=== PATIENT | female | born 1935 | race Caucasian/White ===

== ENCOUNTER 2021-04-27 08:42 | Emergency (ER) | payer MEDICARE, OTHER ==
[~2021-04-27] VITALS: Ht 157.5 cm; Wt 104.5 kg
[2021-04-27 11:14] LABS: HEMATOCRIT 39.5 % (37.0-47.0); HEMOGLOBIN 12.5 g/dl (12.0-16.0); IMMATURE GRANULOCYTES 0.2 % (0.0-5.0); MEAN CELL VOLUME 88.4 fL CALC (80.0-100.0); MEAN CORPUSCULAR HGB CONC 31.6 g/dL CAL (32.0-36.0); NEUT# 3.5 thou/uL (2.00-7.15); RED BLOOD COUNT 4.47 mill/uL (4.20-5.60); RED CELL DISTRI WIDTH 13.7 % (11.5-15.5)
[2021-04-27 11:24] LABS: ALBUMIN 4.1 g/dL (3.2-5.0); ALKALINE PHOSPHATASE 49 u/l (38-126); AMYLASE 32 u/l (30-110); ANION GAP 21 (6-22 (CALC)); BILIRUBIN, TOTAL 0.7 mg/dL (0.0-1.4); BUN 29 mg/dL (8-23); BUN/CREATININE RATIO 24 (12-20 (CALC)); CARBON DIOXIDE 35 mmol/l (22-30); CHLORIDE 93 mmol/l (95-108); CREATININE 1.2 mg/dL (0.5-1.0); GFR 43 ML/MIN (>=60 (CALC)); GFR FOR AFR.AMER. 52 ML/MIN (>=60 (CALC)); LIPASE 26 u/l (23-300); POTASSIUM 3.6 mmol/l (3.5-5.1); SGOT/AST 27 u/l (9-36); SODIUM 146 mmol/l (137-146); TOTAL PROTEIN 7.8 g/dL (6.3-8.2)
[2021-04-27 11:36] LABS: MYOGLOBIN 33 ng/mL (0 - 62)
[2021-04-27 12:32] LABS: URINE BILIRUBIN - DIPSTICK NEGATIVE (NEGATIVE); URINE BLOOD DIPSTICK NEGATIVE (NEGATIVE); URINE COLOR YELLOW; URINE GLUCOSE - DIPSTICK NEGATIVE (NEGATIVE); URINE KETONE NEGATIVE (NEGATIVE); URINE LEUK ESTERASE TRACE (NEGATIVE); URINE PH 7.5 (4.5-8.0); URINE PROTEIN - DIPSTICK NEGATIVE (NEG-TRACE); URINE SPECIFIC GRAVITY 1.015; URINE UROBILINOGEN - DIPSTICK 0.2 E.U./dL (0.2)
[2021-04-27 12:38] LABS: URINE NITRITE - DIPSTICK NEGATIVE (Negative)
[2021-04-27] MEDS ORDERED: GABAPENTIN100 MG PO (14:10)
[2021-04-27] MEDS ORDERED: ACTOS30 MG PO (14:13)
[2021-04-27] MEDS ORDERED: METFORMIN500 M2 PO (14:13)
[2021-04-27] MEDS ORDERED: HYDROCODONE BIT10 MG PO (14:16)
[2021-04-27 14:34] VITALS: BP 175/74
== END 2021-04-27 14:46 | disposition home or self-care (01) ==
LOC: ED 08:42
PROVIDERS: Emergency Medicine
DX: K59.00 Constipation, unspecified (principal); E11.9 Type 2 diabetes mellitus without complications; Z79.84 Long term (current) use of oral hypoglycemic drugs; Z20.822 Contact with and (suspected) exposure to COVID-19

== ENCOUNTER 2022-02-09 03:39 | Observation (INO) | payer MEDICARE, OTHER ==
[2022-02-09] VITALS (13 sets, daily range): BP systolic 102–137; BP diastolic 41–75
[~2022-02-09] VITALS: Ht 160 cm; Wt 84.0 kg
[~2022-02-09 03:39] MED LIST: ACTOS30 MG PO; AMARYL4 MG PO; BACLOFEN5 MG PO; BUMETANIDE1 MG PO; CLOTRIM/BETA EX; DICLOFENAC SODIUM1 % TOP; GABAPENTIN100 MG PO; HYDROCO/APAP1 TA9 PO; HYDROCODONE BIT10 MG PO; HYDROXYZINE HYD25 MG PO; KLOR-CON M2020 MEQ PO; MAGNESIUM400 MG PO; METFORMIN500 M2 PO; METOLAZONE2.5 MG PO; PRESERVISION PO; TRIAMCINOLON OI80 GM EX; ZOFRAN4 MG/TAB PO
[2022-02-09 04:25] LABS: HEMATOCRIT 42.6 % (37.0-47.0); IMMATURE GRANULOCYTES 0.5 % (0.0-5.0); MEAN CELL VOLUME 90.3 fL CALC (80.0-100.0); MEAN CORPUSCULAR HGB 27.5 pG CALC (26.0-32.0); MEAN CORPUSCULAR HGB CONC 30.5 g/dL CAL (32.0-36.0); NEUT# 9.22 thou/uL (2.00-7.15); RED BLOOD COUNT 4.72 mill/uL (4.20-5.60); RED CELL DISTRI WIDTH 13.2 % (11.5-15.5)
[2022-02-09 04:54] LABS: ALBUMIN 3.9 g/dL (3.2-5.0); AMYLASE 47 u/l (30-110); ANION GAP 14 (6-22 (CALC)); BILIRUBIN, TOTAL 0.4 mg/dL (0.0-1.4); BUN 32 mg/dL (8-23); BUN/CREATININE RATIO 36 (12-20 (CALC)); CARBON DIOXIDE 33 mmol/l (22-30); CHLORIDE 95 mmol/l (95-108); CREATININE 0.9 mg/dL (0.5-1.0); GFR FOR AFR.AMER. > 60 ML/MIN (>=60 (CALC)); GFR OTHER RACES 59 ML/MIN (>=60 (CALC)); LIPASE 35 u/l (23-300); SGOT/AST 23 u/l (9-36); SODIUM 138 mmol/l (137-146); TOTAL PROTEIN 7.9 g/dL (6.3-8.2)
[2022-02-09 05:02] LABS: ALKALINE PHOSPHATASE 133 u/l (38-126)
[2022-02-09 05:07] LABS: MYOGLOBIN 32 ng/mL (0 - 62)
[2022-02-09 06:19] LABS: URINE BILIRUBIN - DIPSTICK NEGATIVE (NEGATIVE); URINE BLOOD DIPSTICK TRACE-INTACT (NEGATIVE); URINE COLOR YELLOW; URINE GLUCOSE - DIPSTICK NEGATIVE (NEGATIVE); URINE PROTEIN - DIPSTICK NEGATIVE (NEG-TRACE); URINE UROBILINOGEN - DIPSTICK 0.2 E.U./dL (0.2)
[2022-02-09 06:22] LABS: URINE LEUK ESTERASE SMALL (NEGATIVE); URINE NITRITE - DIPSTICK POSITIVE (Negative)
[2022-02-09 06:26] LABS: URINE KETONE NEGATIVE (NEGATIVE)
[2022-02-09 06:27] LABS: URINE EPITHELIAL CELLS MODERATE EPI/hpf (0-FEW); URINE WBC 50-100 WBC/hpf (0-5)
[2022-02-09 06:28] LABS: URINE BACTERIA MANY hpf
[2022-02-10 00:33] VITALS: BP 124/47
[2022-02-10 04:14] VITALS: BP 110/36
[2022-02-10 05:54] LABS: MEAN CELL VOLUME 91.7 fL CALC (80.0-100.0); MEAN CORPUSCULAR HGB 27.9 pG CALC (26.0-32.0); MEAN CORPUSCULAR HGB CONC 30.4 g/dL CAL (32.0-36.0); RED BLOOD COUNT 3.87 mill/uL (4.20-5.60); RED CELL DISTRI WIDTH 13.6 % (11.5-15.5)
[2022-02-10 06:08] LABS: HEMATOCRIT 35.5 % (37.0-47.0); HEMOGLOBIN 10.8 g/dl (12.0-16.0)
[2022-02-10 06:11] LABS: ANION GAP 9 (6-22 (CALC)); BUN 17 mg/dL (8-23); BUN/CREATININE RATIO 28 (12-20 (CALC)); CARBON DIOXIDE 29 mmol/l (22-30); CHLORIDE 104 mmol/l (95-108); CREATININE 0.6 mg/dL (0.5-1.0); GFR FOR AFR.AMER. > 60 ML/MIN (>=60 (CALC)); GFR OTHER RACES > 60 ML/MIN (>=60 (CALC)); POTASSIUM 3.2 mmol/l (3.5-5.1); SODIUM 139 mmol/l (137-146)
[2022-02-10 06:19] VITALS: BP 110/55
[2022-02-10 08:00] VITALS: BP 112/57
[2022-02-10 10:59] VITALS: BP 112/57
[2022-02-10] MEDS ORDERED: KEFLEX500 MG PO (11:24)
[2022-02-10 14:02] VITALS: BP 112/57
== END 2022-02-10 15:45 | disposition home or self-care (01) ==
LOC: ED 03:39 → ED-I 06:30 → ED 06:54 → MS2 06:55
PROVIDERS: Emergency Medicine; ADMIT Hospitalist; ATTEND Hospitalist
DX: N39.0 Urinary tract infection, site not specified (principal); E87.6 Hypokalemia; E83.42 Hypomagnesemia; I11.0 Hypertensive heart disease with heart failure; I50.9 Heart failure, unspecified; E11.40 Type 2 diabetes mellitus with diabetic neuropathy, unspecified; E03.9 Hypothyroidism, unspecified; B96.20 Unspecified Escherichia coli [E. coli] as the cause of diseases classified elsewhere; Z79.84 Long term (current) use of oral hypoglycemic drugs; Z66 Do not resuscitate; Z20.822 Contact with and (suspected) exposure to COVID-19
CPT/HCPCS: J1650; J3475; Q9967

== ENCOUNTER 2024-02-15 01:25 | Inpatient (IN) | payer MEDICARE, OTHER ==
[2024-02-15] VITALS (19 sets, daily range): BP systolic 109–180; BP diastolic 34–97
[~2024-02-15] VITALS: Ht 160 cm; Wt 93.4 kg
[~2024-02-15 01:25] MED LIST changes: +ASPIRIN325 MG PO; +CEFTAZIDIME2 GM IV; +COLACE100 MG PO; +FERROUS SULFAT325 MG PO; +HUMALOG100 UNIT/M SC; +KEFLEX500 MG PO; +LEVOTHYROXIN150 MC1 PO; +LORTAB 5/3255 MG PO; +METFORMIN HCL1000 MG PO; +MIRALAX17 GM; +NEURONTIN600 MG PO; +PEPCID20 MG PO; +QC VITAMIN B; +VITAMIN D-32000 UNI1
[2024-02-15] MEDS ORDERED: ACETAMINOPHEN 500 MG TAB PO ONE (01:40)
[2024-02-15] MEDS ORDERED: KETOROLAC TROMETHAMINE 30 MG/ML SDV IV ONE (01:40)
--- NOTE | 2024-02-15 01:50 | NUR ---
PT ARRIVED VIA POV WITH NIECE BEDSIDE WITH SOB SINCE AM OF 02/14/24. PT WENT TO SLEEP AROUND 2200 AFTER TAKING A PAIN MEDS AT 2130. WOKE UP WITHIN THE HR AND IS HAVING INCREASED SOB. PT HAD RECENT R ANKLE SX WITHIN PAST COUPLE WKS, HAS NOT STARTED PT YET. DENIES ANY NEBI TX OR ALBUTERAL INHALER. VSS SOMEWHAT ELEVATED. O2 APPROPRIATE, RR 18.
[2024-02-15] MEDS ORDERED: PROTONIX40 M2 PO (01:59)
[2024-02-15] MEDS ORDERED: HYDROXYZ HCL25 MG PO (02:00)
[2024-02-15 02:01] LABS: BASO% 0.4 % (0-3); IMMATURE GRANULOCYTES 1.2 % (0.0-5.0); LYMPH% 32.5 % (15-41); MEAN CELL VOLUME 88.9 fL CALC (80.0-100.0); MEAN CORPUSCULAR HGB 25.6 pG CALC (26.0-32.0); MEAN CORPUSCULAR HGB CONC 28.8 g/dL CAL (32.0-36.0); MONO% 6.8 % (2-13); NEUT# 4.27 thou/uL (2.00-7.15); NEUT% 58.1 % (42-76); RED BLOOD COUNT 4.61 mill/uL (4.20-5.60); RED CELL DISTRI WIDTH 16.9 % (11.5-15.5)
[2024-02-15] MEDS ORDERED: KENALOG15 GM/TUBE EX (02:01)
[2024-02-15] MEDS ORDERED: PRESERVISION AREDS 2 PO (02:04)
[2024-02-15] MEDS ORDERED: [UNRECOGNIZED DRUG - OTHER] TOP (02:04)
[2024-02-15] MEDS ORDERED: cefTRIAXone SODIUM 2 GM in SODIUM CHLORIDE 0.9% 100 ML IV ONE (02:05)
[2024-02-15] MEDS ORDERED: AZITHROMYCIN 500 MG in SODIUM CHLORIDE 0.9% 250 ML IV ONE (02:05)
[2024-02-15] MEDS ORDERED: NITROSTAT0.4 MG SL (02:06)
[2024-02-15] MEDS ORDERED: MAGNESIUM 400 M1 TAB PO (02:06)
[2024-02-15 02:08] LABS: HEMOGLOBIN 11.8 g/dl (12.0-16.0)
[2024-02-15 02:19] LABS: ALBUMIN 3.4 g/dL (3.2-5.0); ALKALINE PHOSPHATASE 102 u/l (38-126); ANION GAP 7 (6-22 (CALC)); BILIRUBIN, TOTAL 0.6 mg/dL (0.02-1.3); BUN 17 mg/dL (8-23); BUN/CREATININE RATIO 24 (12-20 (CALC)); CARBON DIOXIDE 34 mmol/l (22-30); CHLORIDE 99 mmol/l (95-108); CREATININE 0.7 mg/dL (0.5-1.0); ESTIMATED GFR 83 ML/MIN (>=90 (CALC)); POTASSIUM 3.9 mmol/l (3.5-5.1); SGOT/AST 31 u/l (9-36); SODIUM 136 mmol/l (137-146); TOTAL PROTEIN 7.7 g/dL (6.3-8.2)
[2024-02-15 02:22] LABS: INTERNATIONAL NORMALIZED RATIO 1.1 RATIO (0.7-1.3)
[2024-02-15 02:28] LABS: PROTHROMBIN TIME 10.8 SECONDS (9.0-12.5)
--- NOTE | 2024-02-15 02:45 | NUR ---
PT RESTING IN BED WITH NIECE BEDSIDE. IV ABX STARTED. PT HAVING APPROPRIATE OXYGEN SATURATION, HOWEVER TAKING SHORT BREATHS. EDUCATED PT ON EFFECTIVE DEEP BREATHING TECHNIQUE.
[2024-02-15] MEDS ORDERED: FUROSEMIDE 40 MG/4 ML SDV IV ONE (03:30)
[2024-02-15 03:32] LABS: D-DIMER 2.05 mg/L (0.19-0.60)
--- NOTE | 2024-02-15 04:10 | NUR ---
PT TO GO TO CAT SCAN....NOT GOING UNTIL SHE IS KNOCKED OUT. PT GIVEN ATIVAN 2 MG IV. SAT FROM 94 TO 89. PLACED ON NC AT [address] WITH RN/RT ON MONITOR BOX.
[2024-02-15] MEDS ORDERED: LORazepam 2 MG/ML ONE (04:12)
--- NOTE | 2024-02-15 05:24 | NUR ---
PT RESTING IN BED WITH EYES CLOSED, HOWEVER STILL AWARE.
[2024-02-15] MEDS ORDERED: ACETAMINOPHEN 325 MG/TAB PO PRN (06:20)
[2024-02-15] MEDS ORDERED: ALUM & MAG HYDROX-SIMETHICONE 30 ML PO PRN (06:20)
[2024-02-15] MEDS ORDERED: MAGNESIUM HYDROXIDE 30 ML UDC PO PRN (06:20)
[2024-02-15] MEDS ORDERED: IBUPROFEN 800 MG/TAB PO PRN (06:20)
[2024-02-15] MEDS ORDERED: ONDANSETRON HCl 4 MG/2 ML SDV IV PRN (06:20)
[2024-02-15] MEDS ORDERED: ONDANSETRON 4 MG/TAB ODT PO PRN (06:20)
[2024-02-15] MEDS ORDERED: FAMOTIDINE 10MG/ML 2ML SDV IV PRN (06:20)
[2024-02-15] MEDS ORDERED: DEXTROSE 250 ML IV PRN (06:25)
[2024-02-15] MEDS ORDERED: FUROSEMIDE 40 MG/4 ML SDV IV SCH (07:00)
[2024-02-15] MEDS ORDERED: INSULIN LISPRO 100 UNITS/ML ML SC SCH (07:00)
--- NOTE | 2024-02-15 07:33 | NUR ---
LASIX NOT ADMINISTERED, LAST ADMINISTERED AT 0440. PT GOING FOR PROCEDURE
--- NOTE | 2024-02-15 08:28 | NUR ---
REPORT RECEIVED FROM DYLAN IN ED, PT ARRIVED ON UNIT @ 0828 TRANSPORTED VIA STRETCHER AND ASSISTED WITH MAX ASSIST TO SCALE THEN BED WHERE SHE WAS SETTLED. ALERT AND ORIENTED X 3, DENIES PAIN BUT CAN ONLY TOLERATE STANDINDG FOR FEW MINUTES. O2 @ 2L VIA NC IN PLACE, # [address] TO RAC AND FLUSHES FREELY. SCABS X 2 TO RIGHT ANKLE FROM PAST SURGICAL PROCEDURES. ORIENTED TO CALL [facility], BED LOCKED IN LOWEST POSITION.
[2024-02-15] MEDS ORDERED: HYDROcodone 5 MG/Acetaminophen 325 MG/COMBO PO PRN (09:05)
[2024-02-15] MEDS ORDERED: PANTOPRAZOLE SODIUM Sesquihydr 40 MG/TAB PO SCH (10:00)
[2024-02-15] MEDS ORDERED: BUMETANIDE 1 MG/4 ML VIAL IV SCH (14:00)
[2024-02-15] MEDS ORDERED: GABAPENTIN 300 MG/CAP PO SCH (15:00)
[2024-02-15] MEDS ORDERED: AZITHROMYCIN 500 MG in SODIUM CHLORIDE 0.9% 250 ML IV SCH (21:00)
[2024-02-15] MEDS ORDERED: SODIUM CHLORIDE 0.9% 250 ML IV ONE (21:45)
[2024-02-16 04:32] VITALS: BP 113/42
[2024-02-16 04:52] VITALS: BP 113/42
[2024-02-16 04:55] LABS: BASO% 0.5 % (0-3); EOS% 2.8 % (0-8); IMMATURE GRANULOCYTES 0.5 % (0.0-5.0); LYMPH% 31.9 % (15-41); MEAN CELL VOLUME 89.7 fL CALC (80.0-100.0); MEAN CORPUSCULAR HGB 26.4 pG CALC (26.0-32.0); MEAN CORPUSCULAR HGB CONC 29.4 g/dL CAL (32.0-36.0); MONO% 9.4 % (2-13); NEUT# 3.17 thou/uL (2.00-7.15); NEUT% 54.9 % (42-76); RED BLOOD COUNT 3.79 mill/uL (4.20-5.60)
[2024-02-16 05:08] LABS: CREATININE 0.8 mg/dL (0.5-1.0); POTASSIUM 3.7 mmol/l (3.5-5.1)
[2024-02-16 05:32] LABS: ALBUMIN 2.5 g/dL (3.2-5.0); BILIRUBIN, TOTAL 0.2 mg/dL (0.02-1.3); TOTAL PROTEIN 5.5 g/dL (6.3-8.2)
[2024-02-16] MEDS ORDERED: LEVOTHYROXINE SODIUM 50 MCG/TAB PO SCH (06:00)
[2024-02-16 06:40] VITALS: BP 120/50
--- NOTE | 2024-02-16 07:46 | NUR ---
Preliminary blood culture results growing gram positive cocci in 2/4 bottles (same set) called to APRN. Emily Verbal order to increase Rocephin to 2 g daily.
[2024-02-16] MEDS ORDERED: MAGNESIUM SULFATE HEPTAHYDRATE 100 ML IV SCH (08:00)
[2024-02-16] MEDS ORDERED: cefTRIAXone SODIUM 2 GM in SODIUM CHLORIDE 0.9% 100 ML IV SCH (11:00)
--- NOTE | 2024-02-16 13:19 | NUR ---
Patient resting in bed, bed locked and low. Call light within reach. No apparent distress observed or reported by patient. Plan of care reviewed with patient, questions encouraged and answered to best ability within scope of practice. No further questions at this time. Patient encouraged to call if any needs were to arise. Will continue to monitor.
[2024-02-16 14:39] VITALS: BP 130/54
[2024-02-16 18:55] VITALS: BP 135/69
--- NOTE | 2024-02-16 22:43 | NUR ---
PT RESTING NO DISTRESS NOTED. NURSE NOTED THAT PT HAS TREMORS PT STATED THAT IT CHRONIC. IV SITE FLUSHED AND LEAKING SO NURSE PLACED A NEW IV ON HER RAC 22G SL. VS WNL ON NC 2L WHICH SHE WEARS AT HOME LUNGS CLEAR. PT HAS GENERALIZED EDEMA. CALL LIGHT WITHIN REACH. PLAN OF CARE ONGOING.
--- NOTE | 2024-02-17 04:15 | NUR ---
PT RESTING NO DISTRESS NOTED ON EXAM. CALL LIGHT WITHIN REACH. PLAN OF CARE ONGOING.
[2024-02-17 04:23] VITALS: BP 137/71
[2024-02-17 05:30] LABS: BASO% 0.5 % (0-3); EOS% 1.5 % (0-8); HEMATOCRIT 34.7 % (37.0-47.0); HEMOGLOBIN 10.2 g/dl (12.0-16.0); IMMATURE GRANULOCYTES 0.7 % (0.0-5.0); LYMPH% 30.9 % (15-41); MEAN CELL VOLUME 90.1 fL CALC (80.0-100.0); MEAN CORPUSCULAR HGB 26.5 pG CALC (26.0-32.0); MEAN CORPUSCULAR HGB CONC 29.4 g/dL CAL (32.0-36.0); NEUT# 3.37 thou/uL (2.00-7.15); NEUT% 56.4 % (42-76); RED BLOOD COUNT 3.85 mill/uL (4.20-5.60); RED CELL DISTRI WIDTH 16.7 % (11.5-15.5)
[2024-02-17 05:46] LABS: ALBUMIN 2.5 g/dL (3.2-5.0); BILIRUBIN, TOTAL 0.2 mg/dL (0.02-1.3); CREATININE 0.8 mg/dL (0.5-1.0); POTASSIUM 3.5 mmol/l (3.5-5.1); TOTAL PROTEIN 5.6 g/dL (6.3-8.2)
[2024-02-17 05:47] LABS: MAGNESIUM 1.6 mg/dL (1.6-2.3)
--- NOTE | 2024-02-17 08:35 | NUR ---
PATIENT A/O X3; SITTING SEMI FOLWER IN BED WITH BREAKFAST; DENIED ANY PAIN; DENIED ANY N/D/V AT THIS TIME; NO S/S OF DISTRESS O2 AT 2L BREATHING UNLABORED AND EVEN; FEMALE PURWICK WORKINTG WITH WITH DARK YELLOW URINE OUTPUT;GLUCOSE IS 221, 4 UNITS GIVEN; DENIED NEEDING ANYTHING AT THIS TIME; MEDIATIOPN REVIEWED; CALL LIGHT WITHIN REACH,VERBALIZED UNDERSTANDING ON HOW TO USE, PERSONAL ITEMS WITHIN REACCH, BED IN LOWEST POSTION
[2024-02-17 08:40] VITALS: BP 105/57
[2024-02-17 09:19] VITALS: BP 105/57
[2024-02-17] MEDS ORDERED: ALPRAZolam 0.25 MG PO SCH (12:00)
--- NOTE | 2024-02-17 12:05 | NUR ---
PATIENT A/O X3; ON 2L OF ; BREATHING UNLABORED AND EVEN; DENIED ANY PAIN; DENIED ANY N/D/V AT THIS TIME; DENIED NEEDING ANYTHING AT THIS TIME; NO S/S OF DISTRESS; PATINET SITTING SEMI GRAJEDA IN BED WATCHING TV; IV SITE CLEAN AND INTACT SALINE LOCKED WITH NO ISSUES; MEDICATION REVIEWED; MEDICATION REVIEWED; YARITZA LIGHT WITHIN REACH,VERBALIZED UNDESRTADNING ON HOW TO USE, PERSONAL ITEMS WITHIN REACH, BED IN LOWEST POSTION
[2024-02-17] MEDS ORDERED: DOXYCYCLINE100 MG PO (12:17)
--- NOTE | 2024-02-17 12:56 | NUR ---
CEFRIAXONE 2G WQAS GIVEM LATE DUE TO MEDICATION WAS NOT IN BIN;MEDICATION GIVEN
--- NOTE | 2024-02-17 16:22 | NUR ---
IV site discontinued, cath intact. No edema , no redness, voices no discomDischarge instructions given. Patient verbalizes understanding of same. Dis[facility] stable [facility]. All belongings sent with pt.
--- NOTE | 2024-02-17 16:26 | NUR ---
CALLED [facility] AND GAVE REPORT TO DEBBY
== END 2024-02-17 16:21 | DRG 292 ==
LOC: ED 01:25 → ED-I 05:40 → ED 06:22 → MS2 06:23
PROVIDERS: Family Medicine; Nurse Practitioner Family; ADMIT Internal Medicine; ATTEND Internal Medicine
PROC: 0W993ZZ Drainage of Right Pleural Cavity, Percutaneous Approach (ICD-10-PCS; principal; 2024-02-15)
DX: I50.33 Acute on chronic diastolic (congestive) heart failure (principal); J91.8 Pleural effusion in other conditions classified elsewhere; E83.42 Hypomagnesemia; E11.40 Type 2 diabetes mellitus with diabetic neuropathy, unspecified; I25.10 Atherosclerotic heart disease of native coronary artery without angina pectoris; E03.9 Hypothyroidism, unspecified; Z79.84 Long term (current) use of oral hypoglycemic drugs; Z87.81 Personal history of (healed) traumatic fracture
CPT/HCPCS: J2060; J3475; Q9967